=== PATIENT | female | born 1980 | race Two or more races ===

== ENCOUNTER 2025-01-12 16:43 | Inpatient (IN) | payer OTHER ==
[~2025-01-12] VITALS: Ht 165.1 cm; Wt 114.5 kg
--- NOTE | 2025-01-12 17:08 | ED.PDOC ---
GI ASSESSMENT HPI Comments This is a 44 year old female JEF presenting to the ED with chief complaint of abdominal pain. Patient reports that she has been experiencing LLQ abdominal burning with associated nausea and vomiting since 4 hours ago. Patient relays that her pain radiates to her genital region. EMS states patient was given Zofran en route to the ED. Patient denies any diarrhea, chest pain, SOB, fever, chills, dysuria, hematuria, or flank pain. Time Seen by MD: 17:05 Reviewed Notes: Nurses Notes, Puncher And Fastener Notes, Medications, Allergies Allergies: Coded Allergies: NO KNOWN ALLERGIES (Unverified , 01/12/25) Information Source: Patient, Emergency Med Personnel Mode of Arrival: EMS Timing: Hours Duration: Since onset Prehospital treatment: None Quality: Burning Vomitus: Watery Stool: Normal Severity: Moderate Recent: None Recent Hx of: None Pain Location: LLQ Modifying Factors: Nothing Associated sign and symptoms: Nausea, Vomiting, Abdominal Pain Past Medical History PAST MEDICAL HISTORY: Gallstones Surgical History: , Tubal Ligation SOLE MOLDER History: No Pertinent SOLE MOLDER History Family History Family History: Reviewed,noncontributory to illness Social History Smoker: Non-Smoker Alcohol: Occasionally Drugs: Denies Drug Use Lives In: Home Constitutional: denies: chills, diaphoresis, fatigue, fever, malaise, sweats, weakness, others EENTM: denies: blurred vision, double vision, ear bleeding, ear discharge, ear drainage, ear pain, ear ringing, eye pain, eye redness, hearing loss, mouth pain, mouth swelling, nasal discharge, nose bleeding, nose congestion, nose pain, photophobia, tearing, throat pain, throat swelling, voice changes, others Respiratory: denies: cough, hemoptysis, orthopnea, SOB at rest, shortness of breath, SOB with excertion, stridor, wheezing, others Cardiovascular: denies: chest pain, dizzy spells, diaphoresis, Dyspnea on exertion, edema, irregular heart beat, left arm pain, lightheadedness, palpitations, PND, syncope, others Gastrointestinal: reports: abdominal pain, nausea, vomiting; denies: abdomen distended, blood streaked bowels, constipated, diarrhea, dysphagia, difficulty swallowing, hematemesis, melena, poor appetite, poor fluid intake, rectal bleeding, rectal pain, others Genitourinary: denies: abnormal vagina bleeding, burning, dyspareunia, dysuria, flank pain, frequency, hematuria, incontinence, pain, , vagina dis charge, urgency, others Neurological: denies: dizziness, fainting, headache, left sided numbness, left sided weakness, numbness, paresthesia, pre-existing deficit, right sided numbness, right sided weakness, seizure, speech problems, tingling, tremors, weakness, others Musculoskeletal: denies: back pain, gout, joint pain, joint swelling, muscle pain, muscle stiffness, neck pain, others Integumetry: denies: bruises, change in color, change in hair/nails, dryness, laceration, lesions, lumps, rash, wounds, others Allergic/Immunocompromised: denies: Difficulty Healing, Frequent Infections, Hives, Itching, others Hematologic/Lymphatic: denies: anemia, blood clots, easy bleeding, easy bruising, swollen glands, others Endocrine: denies: excessive hunger, excessive sweating, excessive thirst, excessive urination, flushing, intolerance to cold, intolerance to heat, unexplained weight gain, unexplained weight loss, others Psychiatric: denies: anxiety, bipolar disorder, depression, hopeless, panic disorder, schizophrenia, sleepless, suicidal, others All Other Systems: Reviewed and Negative Physical Exam General Appearance: Moderate Distress HEENT: Normal ENT Inspection, Pharynx Normal, TMs Normal Neck: Full Range of Motion, Non-Tender, Normal, Normal Inspection Respiratory: Chest Non-Tender, Lungs Clear, No Accessory Muscle Use, No Respiratory Distress, Normal Breath Sounds Cardiovascular: No Edema, No JVD, No Murmur, No Gallop, Normal Peripheral Pulses, Regular Rate/Rhythm Breast Exam: Deferred Gastrointestinal: LLQ, LUQ, No Organomegaly, No Pulsatile Mass, Normal Bowel Sounds, Soft, Tenderness Genitalia: Deferred Pelvic: Deferred Rectal: Deferred Extremities: No calf tenderness, Normal capillary refill, Normal inspection, Normal range of motion, Non-tender, No pedal edema Musculoskeletal : Apperance: Normal Neurologic: Alert, aircraft skin burnisher II-XII nml as Tested, No Motor Deficits, Normal Affect, Normal Mood, No Sensory Deficits Cerebellar Function: Normal Reflexes: Normal Skin: Dry, Normal Color, Warm Lymphatic: No Adenopathy Was a procedure done? Was a procedure done?: No GI differential Dx Differential Diagnosis: Cholangitis, Cholecystitis, Gastritis/PUD, Andres roenteritis, Inflammatory BD, Pancreatitis, PID, UTI, Electrolyte Imbalance, Food Poisoning X-Ray, Labs, Meds, VS Vital Signs Date Time Temp Pulse Resp B/P (MAP) Pulse Ox O2 Delivery O2 Flow Rate FiO2 01/12/25 17:07 98.9 85 18 140/86 100 98.9 Lab Test 01/12/25 17:05 Range/Units White Blood Count 9.8 4.4-10.8 10^3/uL Red Blood Count 4.83 4.0-5.20 10^6/uL Hemoglobin 13.8 12.2-16.2 g/dL Hematocrit 40.7 36.0-46.0 % Mean Corpuscular Volume 84.4 80.0-100.0 fL Mean Corpuscular Hemoglobin 28.5 28.0-32.0 pg Mean Corpuscular Hemoglobin Concent 33.8 32.0-36.0 g/dL Red Cell Distribution Width 13.4 11.8-14.3 % Platelet Count 250 140-450 10^3/uL Mean Platelet Volume 8.9 6.9-10.8 fL Neutrophils (%) (Auto) 86.0 H 37.0-80.0 % Lymphocytes (%) (Auto) 9.4 L 10.0-50.0 % Monocytes (%) (Auto) 4.0 0.0-12.0 % Eosinophils (%) (Auto) 0.1 0.0-7.0 % Basophils (%) (Auto) 0.5 0.0-2.0 % Neutrophils # (Auto) 8.4 1.6-8.6 10 ^3/uL Lymphocytes # (Auto) 0.9 0.4-5.4 10 ^3/uL Monocytes # (Auto) 0.4 0-1.3 10 ^3/uL Eosinophils # (Auto) 0 0-0.8 10 ^3/uL Basophils # (Auto) 0 0-0.2 10 ^3/uL Nucleated Red Blood Cells 0.0 % Sodium Level 143 136-145 mmol/L Potassium Level 3.6 3.5-5.1 mmol/L Chloride Level 106 98-107 mmol/L Carbon Dioxide Level 27 20-31 mmol/L Anion Gap 10 5-15 Blood Urea Nitrogen 15 9-23 mg/dL Creatinine 0.75 0.550-1.02 mg/dL Glomerular Filtration Rate Calc 99 >90 mL/min BUN/Creatinine Ratio 20.0 10.0-20.0 Serum Glucose 88 74-106 mg/dL Calcium Level 9.4 8.7-10.4 mg/dL CT Abd/Pel indicates: Limited evaluation without contrast. [id number] left hydroureteronephrosis secondary to a 2 mm calculus at the left ureterovesicular junction. Cholelithiasis. Enlarged uterus with heterogeneous appearance and possible leiomyoma measuring 9 cm. Recommend pelvic ultrasound to further evaluate. Hepatosplenomegaly. Other findings as described. The patient is being admitted to the hospitalist The CBC and chemistry panel are within normal limits. The patient understands and agrees with the management. Patient does have the kidney stones. Images Reviewed?: Images reviewed and evaluated by me Time of 1ST Reevaluation: 18:46 Reevaluation 1ST: Unchanged Patient Education/Counseling: Diagnosis, Treatment, Prognosis Family Education/Counseling: No Family Present SEPSIS Sepsis Screen Physician Orders Urinalysis (01/12/25 16:51) Ct Ab Pel Wo Con-No Oral Or Iv (01/12/25 17:01) Heplock Iv (01/12/25 16:51) Vital Signs Date Time Temp Pulse Resp B/P (MAP) Pulse Ox O2 Delivery O2 Flow Rate FiO2 01/12/25 17:07 98.9 85 18 140/86 100 98.9 Laboratory Tests Test 01/12/25 17:05 White Blood Count 9.8 10^3/uL (4.4-10.8) Departure 1 Departure Time of Disposition: 18:47 Impression: Primary Impression: Intractable abdominal pain Additional Impressions: Cholelithiasis Qualified Codes: K80.20 - Calculus of gallbladder without cholecystitis without obstruction Ureterolithiasis Disposition: ADMITTED INPATIENT Admit to: Med Surg Condition: Fair Critical Care Note Critical Care Time?: No Stability Stability form required: Yes Unstable for transfer: ED Physician Assesment (Clinical assesment) Heart Score Heart Score: Heart Score Response (Comments) Value History N/A 0 EKG N/A 0 Age N/A 0 Risk Factors N/A 0 Troponin N/A 0 Total 0 I personally scribed for JADA GALEANA MD ([email or web address]) on 01/12/25 at 17:08. Electronically submitted by Geovanny Thibodeaux ([email or web address]). I personally scribed for JADA GALEAAN MD ([email or web address]) on 01/12/25 at 18:25. Electronically submitted by Geovanny Thibodeaux ([email or web address]). JADA GALEANA MD Jan 12, 2025 17:08
[2025-01-12 17:17] LABS: Hematocrit 40.7 % (36.0-46.0); Hemoglobin 13.8 g/dL (12.2-16.2); Mean Corpuscular Hemoglobin 28.5 pg (28.0-32.0); Mean Corpuscular Volume 84.4 fL (80.0-100.0); Nucleated Red Blood Cells % 0.0 %
[2025-01-12 17:23] LABS: Chloride 106 mmol/L (98-107); Potassium 3.6 mmol/L (3.5-5.1); Sodium 143 mmol/L (136-145)
[2025-01-12 17:24] LABS: Anion Gap 10 (5-15); Calcium 9.4 mg/dL (8.7-10.4); Carbon Dioxide 27 mmol/L (20-31)
[2025-01-12 17:29] LABS: BUN/Creatinine Ratio 20.0 (10.0-20.0); Blood Urea Nitrogen 15 mg/dL (9-23); Glucose 88 mg/dL (74-106)
--- NOTE | 2025-01-12 18:16 | DVH ---
Indication: pain Technique: CT axial images of the abdomen and pelvis are obtained without contrast. Coronal and sagit medina reformats were obtained. Radiation Dose Information: CTDI volume is 27.31 mGy. Dose-length product is 1411.97 mGy*cm Comparison: None FINDINGS: There is limited interpretation of the abdomen and pelvis without administration of intravenous contr ast. Lung bases demonstrate atelectasis. Adrenal glands, spleen and pancreas unremarkable in shape. Cholelithiasis. Liver unremarkable in shape. Hepatosplenomegaly. Right kidney demonstrates no hydronephrosis/nephrolithiasis. The left kidney demonstrates mild-to-mod erate left hydroureteronephrosis secondary to a 2 mm calculus at the left ureterovesicular junction. Stomach partially distended. Small bowel loops are normal in caliber. Colonic diverticular disease. Moderate volume stool in the colon. No secondary signs for appendicitis . Bladder is partially distended. Enlarged and heterogeneous appearance of the uterus. Possible uterine leiomyoma measuring 9 cm. No free pelvic fluid. No inguinal lymphadenopathy. No aggressive osseous process. Moderate lumbar degenerative disc disease most pronounced at L4-5 and L5-S1. Paraumbilical hernia containing fat 2.7 cm IMPRESSION: Limited evaluation without contrast. [id number] left hydroureteronephrosis secondary to a 2 mm calculus at the left ureterovesicular junction. Cholelithiasis. Enlarged uterus with heterogeneous appearance and possible leiomyoma measuring 9 cm. Recommend pelvi c ultrasound to further evaluate. Hepatosplenomegaly. Other findings as described.
[2025-01-12] MEDS: SODIUM CHLORIDE 0.9% 1,000 ML IVB ONE (20:39)
[2025-01-12] MEDS: ONDANSETRON HCL 4 MG/2 ML VIAL IV ONE (20:39)
[2025-01-12] MEDS: HYDROmorphone HCL 2 MG/ML VL/or syr IV ONE (20:39)
--- NOTE | 2025-01-12 22:42 | DVHHPRES ---
History of Present Illness Resident Creating Document: TONE WESLEY RESIDENT History of Present Illness Ms. Thornton is a 44-year-old female with no prior medical history, who presents today with chief complaint of left-sided flank pain. She refers sudden onset of left-sided flank pain around mid day today, described as colicky, radiating to left groin, 10/10 intensity, associated with nausea, vomiting, chills, dark urine, and tenesmus. She denies fever, dysuria, palpitations, chest pain, and shortness of breath. Due to persistence of symptoms, the patient sought medical attention in the emergency department. On evaluation in the ED, the patient was in moderate distress, afebrile, and hypertensive. Initial labs show CBC with mild neutrophilia, chemical panel within normal range, UA with hematuria, and negative UDS. Abdominal CT shows mild to moderate left hydroureteronephrosis secondary to a 2 mm calculus at the left ureterovesicular junction. She was started on IV antibiotics, IV pain medication, and fluids. She was admitted for further workup and management. Prior medical history: Denies Past surgical history: 3 C sections Allergies: Denies Social: Denies drug, alcohol, and tobacco use. States she lives with her and feels safe. Review of Systems Review of Systems Constitutional: Refers chills Denies weight loss, fever . HEENT: Denies changes in vision and hearing. Respiratory: Denies shortness of breath and cough Cardiovascular: Denies chest discomfort or palpitations GI: Refers flank pain and lower left quadrant pain, Denies abdominal distention,,diarrhea : Refers tenesmus and dark-colored urine, Denies dysuria and urinary frequency. Musculoskeletal: Denies Skin: Denies rash and pruritus. Neurological: denies dizziness headache vision or hearing problems Allergies: Coded Allergies: NO KNOWN ALLERGIES (Unverified , 01/12/25) Exam Vital Signs Vital Signs Date Time Temp Pulse Resp B/P (MAP) Pulse Ox O2 Delivery O2 Flow Rate FiO2 01/12/25 21:12 71 16 122/71 (88) 99 01/12/25 20:30 98.4 98.4 Exam General: Patient is uncomfortable due to pain, alert and oriented in person place and time. Patient following commands HEENT: Normocephalic, atraumatic, normal reactive pupils, EOM intact, pink conjunctiva, pink dry mucous membrane Respiratory/pulmonary: Bilateral chest expansion, no pain on palpation of chest wall, clear lungs bilaterally, vesicular murmurs present in almost all lung ludwig, no associated crackles or wheezes. Cardiovascular: Normal RRR, normal S1 and S2, no murmurs Abdomen: Obese, Abdomen nondistended, normal bowel sounds, soft, pain to palpation in lower left quadrant, no CVA tenderness, no palpable masses. Extremities: No deformities, there is no peripheral edema present at the lower extremities, normal pulses Skin: No rashes or pruritus, there is no sacral edema present at this time. Neurological: Intact cranial nerves with no focal neurologic deficits Labs/Xrays Labs Test 01/12/25 17:05 Range/Units White Blood Count 9.8 4.4-10.8 10^3/uL Red Blood Count 4.83 4.0-5.20 10^6/uL Hemoglobin 13.8 12.2-16.2 g/dL Hematocrit 40.7 36.0-46.0 % Mean Corpuscular Volume 84.4 80.0-100.0 fL Mean Corpuscular Hemoglobin 28.5 28.0-32.0 pg Mean Corpuscular Hemoglobin Concent 33.8 32.0-36.0 g/dL Red Cell Distribution Width 13.4 11.8-14.3 % Platelet Count 250 140-450 10^3/uL Mean Platelet Volume 8.9 6.9-10.8 fL Neutrophils (%) (Auto) 86.0 H 37.0-80.0 % Lymphocytes (%) (Auto) 9.4 L 10.0-50.0 % Monocytes (%) (Auto) 4.0 0.0-12.0 % Eosinophils (%) (Auto) 0.1 0.0-7.0 % Basophils (%) (Auto) 0.5 0.0-2.0 % Neutrophils # (Auto) 8.4 1.6-8.6 10 ^3/uL Lymphocytes # (Auto) 0.9 0.4-5.4 10 ^3/uL Monocytes # (Auto) 0.4 0-1.3 10 ^3/uL Eosinophils # (Auto) 0 0-0.8 10 ^3/uL Basophils # (Auto) 0 0-0.2 10 ^3/uL Nucleated Red Blood Cells 0.0 % Sodium Level 143 136-145 mmol/L Potassium Level 3.6 3.5-5.1 mmol/L Chloride Level 106 98-107 mmol/L Carbon Dioxide Level 27 20-31 mmol/L Anion Gap 10 5-15 Blood Urea Nitrogen 15 9-23 mg/dL Creatinine 0.75 0.550-1.02 mg/dL Glomerular Filtration Rate Calc 99 >90 mL/min BUN/Creatinine Ratio 20.0 10.0-20.0 Serum Glucose 88 74-106 mg/dL Calcium Level 9.4 8.7-10.4 mg/dL SEPSIS Sepsis Screen Date sepsis recognized/suspect: Jan 12, 2025 Time Sepsis recognized/suspect: 1644 Recent Procedure: No On Antibiotic Therapy: No Respiratory Rate >20: No Heart Rate >90: No Temp<36 C (96.8 F) or >38.3 C: No SBP <90 or MAP <65 mmHG: No New Acute Mental Status Change: No Is the patient on CPAP, BIPAP,: No Physician Orders Urinalysis (01/12/25 16:51) Ct Ab Pel Wo Con-No Oral Or Iv (01/12/25 17:01) Heplock Iv (01/12/25 16:51) Hemoglobin A1c (01/12/25 22:32) Magnesium (01/12/25 22:32) Drug Screen (01/12/25 22:32) Urine Bacterial Culture (01/12/25 22:32) Hepatic Panel (01/12/25 22:32) Abdomen Limited (01/12/25 22:32) * Urology Consult (01/12/25 22:32) Phosphorus (01/12/25 22:32) Thyroid Stimulating Hormone (01/12/25 22:32) Vitamin D, 25-Hydroxy (01/12/25 22:32) Vitamin B12 (01/12/25 22:32) Test, Urine (01/12/25 22:32) Admit (01/12/25 22:32) Allergies (01/12/25 22:32) Code Status (01/12/25 22:32) Npo (Nothing By Mouth) Diet (01/13/25 Breakfast) Condition: Stable (01/12/25 22:32) Stat Ekg For Chest Pain (01/12/25 22:32) Notify Md Of Changes From Base (01/12/25 22:32) Emergency Dysrhythmia Protocol (01/12/25 22:32) Rhythm Strips Once Every Shift (01/12/25 22:32) Sequential Compression Device (01/12/25:32) NS (01/12/25 22:45) NS (01/12/25 22:45) Tamsulosin Hydrochloride (Flomax) (01/12/25 22:45) Tamsulosin Hydrochloride (Flomax) (01/13/25 18:00) Ondansetron Hcl (Zofran) (01/12/25 22:45) Ceftriaxone Ivpb Rocephin (01/13/25 09:00) Ceftriaxone Ivpb Rocephin (01/12/25 22:45) Ketorolac Injection (Toradol Injection) (01/12/25 22:45) Ketorolac Injection (Toradol Injection) (01/12/25 22:45) Strain All Urine For Stones (01/12/25:32) Complete Blood Count (01/13/25 04:00) Basic Metabolic Panel (01/13/25 04:00) Vital Signs Date Time Temp Pulse Resp B/P (MAP) Pulse Ox O2 Delivery O2 Flow Rate FiO2 01/12/25 21:12 71 16 122/71 (88) 99 01/12/25 20:30 98.4 74 14 129/67 (87) 97 98.4 01/12/25 17:07 98.9 85 18 140/86 100 98.9 Laboratory Tests Test 01/12/25 17:05 White Blood Count 9.8 10^3/uL (4.4-10.8) Medications Medications Dose Ordered Sig/Matti Route Start Time Stop Time Status Last Admin Dose Admin Ondansetron HCl 4 mg ONCE ONCE IV 01/12/25 17:00 01/12/25 17:01 DC 01/12/25 20:39 4 MG Sodium Chloride 1,000 ml @ 1,000 mls/hr Q1H ONCE IVB 01/12/25 17:00 01/12/25 17:59 DC 01/12/25 20:39 1,000 MLS/HR Assessment/Plan Assessment/Plan Assessment and Plan: Intractable abdominal pain secondary to ureterolithiasis - Abdominal CT: [id number] left hydroureteronephrosis secondary to 2 mm calculus at the left UVJ - NS 1000 cc bolus x2 - NS maintenance fluids 75 cc/hour - Flomax 0.4 mg p.o. q.p.m. - Dilaudid 0.5 mg IV once - Toradol 15 mg IV Q 6 hours p.r.n. - Urology has been consulted - The patient is NPO pending evaluation by Urology - Orders to strain all urine Left hydroureteronephrosis secondary to ureterolithiasis - Abdominal CT: [id number] left hydroureteronephrosis secondary to 2 mm calculus at the left UVJ - Renal ultrasound: Mild left-sided hydronephrosis - As above Questionable Acute Cystitis with microscopic hematuria - Ceftriaxone 1 g IV daily - Urine culture ordered Cholelithiasis Possible leiomyoma - Abdominal CT: Enlarged uterus with heterogeneous appearance and possible leio myoma measuring 9 cm - Follow up outpatient with founder and president Obesity, BMI 33.4 kg/m2 - I have counseled the patient on healthy lifestyle modifications Diet: NPO DVT prophylaxis: SCDs GI prophylaxis: Protonix 40 mg IV daily Case discussed with Dr. Campbell Goals of care discussed with the patient for over 24 minutes. Full code. Plan discussed with: Patient, Other (Nurses) My Orders Orders - TONE WESLEY RESIDENT Procedure Category Date Status Time Hemoglobin A1c LAB 01/12/25 Transmitted 22:32 Magnesium LAB 01/12/25 Transmitted 22:32 Drug Screen LAB 01/12/25 Transmitted 22:32 Urine Bacterial EVAN 01/12/25 Transmitted Culture 22:32 Hepatic Panel LAB 01/12/25 Transmitted 22:32 Abdomen Limited US 01/12/25 Transmitted 22:32 * Urology Consult CONS 01/12/25 Transmitted 22:32 Phosphorus LAB 01/12/25 Transmitted 22:32 Thyroid Stimulating LAB 01/12/25 Transmitted Hormone 22:32 Vitamin D, 25-Hydroxy LAB 01/12/25 Transmitted 22:32 Vitamin B12 LAB 01/12/25 Transmitted 22:32 Test, Urine LAB 01/12/25 Transmitted 22:32 Admit ADMIT 01/12/25 Transmitted 22:32 Allergies LISA 01/12/25 Transmitted 22:32 Code Status CODE 01/12/25 Transmitted 22:32 Npo (Nothing By DIET 01/13/25 Transmitted Mouth) Diet Breakfast Condition: Stable LISA 01/12/25 Transmitted 22:32 Stat Ekg For Chest LISA 01/12/25 Transmitted Pain 22:32 Notify Md Of Changes [facility] 01/12/25 Transmitted From Base 22:32 Emergency Dysrhythmia [facility] 01/12/25 Transmitted Protocol 22:32 Rhythm Strips Once [facility] 01/12/25 Transmitted Every Shift 22:32 Sequential [facility] 01/12/25 Transmitted Compression Device 22:32 NS PHA 01/12/25 Transmitted 22:45 NS PHA 01/12/25 Transmitted 22:45 Tamsulosin PHA 01/12/25 Transmitted Hydrochloride (Flomax) 22:45 Tamsulosin PHA 01/13/25 Transmitted Hydrochloride (Flomax) 18:00 Ondansetron Hcl PHA 01/12/25 Transmitted (Zofran) 22:45 Ceftriaxone Ivpb PHA 01/13/25 Transmitted Rocephin 09:00 Ceftriaxone Ivpb PHA 01/12/25 Transmitted Rocephin 22:45 Ketorolac Injection PHA 01/12/25 Transmitted (Toradol Injection) 22:45 Ketorolac Injection PHA 01/12/25 Transmitted (Toradol Injection) 22:45 Strain All Urine For [facility] [place] 01/12/25 Transmitted Stones 22:32 Complete Blood Count LAB 01/13/25 Verified 04:00 Basic Metabolic Panel LAB 01/13/25 Verified 04:00 Date of Service: Jan 12, 2025 Billing Provider: GEORGETTE CAMPBELL MD Common Visit Codes: 85613-EYCRKAT INP/OBS CARE (HIGH) Secondary Visit Codes: 60903-[id number] CARE PLAN 30 MINUTES TONE WESLEY RESIDENT Jan 12, 2025 22:42 BRISA JUNE RESIDENT Jan 13, 2025 05:31
[2025-01-12 23:02] LABS: Alanine Aminotransferase 11.0 U/L (7-40); Albumin 4.5 g/dL (3.2-4.8); Alkaline Phosphatase 69.0 U/L (46-116); Bilirubin, Direct 0.1 mg/dL (<0.3); Bilirubin, Total 0.4 mg/dL (0.2-1.0); Magnesium 2.1 mg/dL (1.6-2.6); Total Protein 7.8 g/dL (5.7-8.2)
--- NOTE | 2025-01-12 23:30 | DVH ---
INDICATION: L hydronephrosis TECHNIQUE: Multiple real-time sonographic images of the kidneys and bladder were obtained. COMPARISON: None FINDINGS: RIGHT kidney measures 11.2 cm in length. No stones or hydronephrosis. LEFT kidney measures 12.4 cm in length. No stones. Mild left-sided hydronephrosis. No large intraluminal masses are seen in the bladder. Probable uterine fibroid measuring 8.5 cm, incompletely imaged. IMPRESSION: Mild left-sided hydronephrosis. Ureter not well imaged. CT recommended to assess for cause.
[2025-01-12 23:33] LABS: Urine Protein, UAD Negative (Negative)
[2025-01-12 23:34] LABS: Amphetamine Screen, Urine Neg (NEGATIVE); Barbiturate Scree,Urine Neg (NEGATIVE); Benzodiazephine Screen, Urine Neg (NEGATIVE); Cannabinoid Screen, Urine Neg (NEGATIVE); Cocaine Screen, Urine Neg (NEGATIVE); Opiate Scree,Urine Neg (NEGATIVE); Phencyclidine Screen, Urine Neg (NEGATIVE)
[2025-01-12 23:54] VITALS: BP 135/90; PULSE 66; RESP 18; TEMP 98.5; O2SAT 100
[2025-01-13] MEDS: KETOROLAC TROMETH 30 MG/ML 1ML VIAL IV ONE (00:15)
[2025-01-13] MEDS: SODIUM CHLORIDE 0.9% 1,000 ML IV ONE (00:17)
[2025-01-13] MEDS: TAMSULOSIN HYDROCHLORIDE 0.4 MG CAP PO ONE (00:18)
[2025-01-13] MEDS: PANTOPRAZOLE 40 MG/10 ML VIAL INJ IV ONE (00:18)
[2025-01-13] MEDS ORDERED: SEMA1.7I (00:33)
[2025-01-13] MEDS: SODIUM CHLORIDE 0.9% 1,000 ML IV SCH (01:22)
[2025-01-13 05:00] VITALS: BP 120/59; PULSE 72; RESP 18; TEMP 97.9; O2SAT 98
[2025-01-13 05:39] LABS: Hematocrit 35.0 % (36.0-46.0); Hemoglobin 11.4 g/dL (12.2-16.2); Mean Corpuscular Hemoglobin 29.0 pg (28.0-32.0); Mean Corpuscular Volume 88.7 fL (80.0-100.0); Nucleated Red Blood Cells % 0.3 %
[2025-01-13 05:40] LABS: Potassium 3.8 mmol/L (3.5-5.1); Sodium 142 mmol/L (136-145)
[2025-01-13 05:41] LABS: Anion Gap 11 (5-15); Calcium 7.8 mg/dL (8.7-10.4); Carbon Dioxide 21 mmol/L (20-31); Chloride 110 mmol/L (98-107)
[2025-01-13 05:46] LABS: BUN/Creatinine Ratio 11.3 (10.0-20.0); Glucose 83 mg/dL (74-106)
[2025-01-13 05:59] LABS: Blood Urea Nitrogen 7 mg/dL (9-23)
[2025-01-13 08:00] VITALS: PULSE 79; RESP 18; O2SAT 96
[2025-01-13 08:35] VITALS: BP 105/50; PULSE 79; RESP 18; TEMP 98.7; O2SAT 96
[2025-01-13] MEDS: PANTOPRAZOLE 40 MG/10 ML VIAL INJ IV SCH (08:43)
[2025-01-13] MEDS: KETOROLAC TROMETH 30 MG/ML 1ML VIAL IV PRN (08:43)
--- NOTE | 2025-01-13 09:04 | DVHINCON2 ---
Date of service: Jan 13, 2025 Referring Physician Hospitalist Reason for Consultation uvj stone History of Present Illness History Source: RN Notes, MD Notes Exam Limitations: No limitations HPI 44-year-old female with no prior medical history, who presents today with chief complaint of left-sided flank pain. She refers sudden onset of left-sided flank pain around mid day today, described as colicky, radiating to left groin, 10/10 intensity, associated with nausea, vomiting, chills, dark urine, and tenesmus. She denies fever, dysuria, palpitations, chest pain, and shortness of breath. Due to persistence of symptoms, the patient sought medical attention in the emergency department. On evaluation in the ED, the patient was in moderate distress, afebrile, and hypertensive. Initial labs show CBC with mild neutrophilia, chemical panel within normal range, UA with hematuria, and negative UDS. Abdominal CT shows mild to moderate left hydroureteronephrosis secondary to a 2 mm calculus at the left ureterovesicular junction. She was started on IV antibiotics, IV pain medication, and fluids. She was admitted for further workup and management. Prior medical history: Denies Past surgical history: 3 C sections Allergies: Denies Social: Denies drug, alcohol, and tobacco use. States she lives with her and feels safe. Home Meds Reported Medications Semaglutide (Wegovy) 1.7 Mg/0.75 Ml Inj 01/13/25 Past Medical History Patient Family History: Cardiovascular disease G8 FATHER H&P Exam Vital Signs Vital Signs Date Time Temp Pulse Resp B/P (MAP) Pulse Ox O2 Delivery O2 Flow Rate FiO2 01/13/25 08:35 98.7 79 18 105/50 (68) 96 98.7 01/13/25 00:28 Room Air* 0 21 Labs/Xrays [address] [address] Ph: [phone] DIAGNOSTIC IMAGING Diagnostic Imaging Report : [id number] Signed PATIENT: JACKIE DUQUET: [id number] UNIT: [id number] : 1980 [facility] AGE / SEX: 44 / F ADM STATUS: ADM IN SERVICE 31 ORDERING PHYSICIAN: TONE WESLEY RESIDENT PROCEDURE(s): KIDUS - KIDNEY REASON: L hydronephrosis ORDER NUMBER(s): [id number], ACCESSION NUMBER(s): [id number] INDICATION: L hydronephrosis TECHNIQUE: Multiple real-time sonographic images of the kidneys and bladder were obtained. COMPARISON: None FINDINGS: RIGHT kidney measures 11.2 cm in length. No stones or hydronephrosis. LEFT kidney measures 12.4 cm in length. No stones. Mild left-sided hydronephrosis. No large intraluminal masses are seen in the bladder. Probable uterine fibroid measuring 8.5 cm, incompletely imaged. IMPRESSION: Mild left-sided hydronephrosis. Ureter not well imaged. CT recommended to assess for cause. ATED BY: ISIDRO VELASQUEZ MD DICTATED DATE/TIME: 01/12/252327 SIGNED BY: ISIDRO VELASQUEZ MD SIGNED DATE/TIME: 01/12/252327 CC: [place] [id number] Ph: [phone] DIAGNOSTIC IMAGING Diagnostic Imaging Report : [id number] Signed PATIENT: JACKIE DUQUET: [id number] UNIT: [id number] : 1980 LOC: ER ROOM / BED: / AGE / SEX: 44 / F ADM STATUS: REG ER SERVICE 1701 ORDERING PHYSICIAN: JADA GALEANA MD PROCEDURE(s): ABPL - CT AB PEL WO CON-NO ORAL OR IV REASON: pain ORDER NUMBER(s): [id number], ACCESSION NUMBER(s): [id number] Indication: pain Technique: CT axial images of the abdomen and pelvis are obtained without contrast. Coronal and sagittal reformats were obtained. Radiation Dose Information: CTDI volume is 27.31 mGy. Dose-length product is 1411.97 mGy*cm Comparison: None FINDINGS: There is limited interpretation of the abdomen and pelvis without administration of intravenous contrast. Lung bases demonstrate atelectasis. Adrenal glands, spleen and pancreas unremarkable in shape. Cholelithiasis. Liver unremarkable in shape. Hepatosplenomegaly. Right kidney demonstrates no hydronephrosis/nephrolithiasis. The left kidney demonstrates [id number] left hydroureteronephrosis secondary to a 2 mm calculus at the left ureterovesicular junction. Stomach partially distended. Small bowel loops are normal in caliber. Colonic diverticular disease. Moderate volume stool in the colon. No secondary signs for appendicitis. Bladder is partially distended. Enlarged and heterogeneous appearance of the uterus. Possible uterine leiomyoma measuring 9 cm. No free pelvic fluid. No inguinal lymphadenopathy. No aggressive osseous process. Moderate lumbar degenerative disc disease most pronounced at L4-5 and L5-S1. Paraumbilical hernia containing fat 2.7 cm IMPRESSION: Limited evaluation without contrast. Ldir-ge-[id number] left hydroureteronephrosis secondary to a 2 mm calculus at the left ureterovesicular junction. Cholelithiasis. Enlarged uterus with heterogeneous appearance and possible leiomyoma measuring 9 cm. Recommend pelvic ultrasound to further evaluate. Hepatosplenomegaly. Other findings as described. ATED BY: SCOTT HOOK MD DICTATED DATE/TIME: 01/12/251817 SIGNED BY: SCOTT HOOK MD SIGNED DATE/TIME: 01/12/251817 CC: Labs Test 01/13/25 05:10 01/12/25 21:45 01/12/25 17:05 Range/Units White Blood Count 6.7 # 4.4-10.8 10^3/uL Red Blood Count 3.95 L 4.0-5.20 10^6/uL Hemoglobin 11.4 #L 12.2-16.2 g/dL Hematocrit 35.0 #L 36.0-46.0 % Mean Corpuscular Volume 88.7 # 80.0-100.0 fL Mean Corpuscular Hemoglobin 29.0 28.0-32.0 pg Mean Corpuscular Hemoglobin Concent 32.7 32.0-36.0 g/dL Red Cell Distribution Width 13.4 11.8-14.3 % Platelet Count 194 140-450 10^3/uL Mean Platelet Volume 9.0 6.9-10.8 fL Neutrophils (%) (Auto) 67.8 37.0-80.0 % Lymphocytes (%) (Auto) 23.7 10.0-50.0 % Monocytes (%) (Auto) 6.1 0.0-12.0 % Eosinophils (%) (Auto) 1.2 0.0-7.0 % Basophils (%) (Auto) 1.2 0.0-2.0 % Neutrophils # (Auto) 4.5 1.6-8.6 10 ^3/uL Lymphocytes # (Auto) 1.6 0.4-5.4 10 ^3/uL Monocytes # (Auto) 0.4 0-1.3 10 ^3/uL Eosinophils # (Auto) 0.1 0-0.8 10 ^3/uL Basophils # (Auto) 0.1 0-0.2 10 ^3/uL Nucleated Red Blood Cells 0.3 % Sodium Level 142 136-145 mmol/L Potassium Level 3.8 3.5-5.1 mmol/L Chloride Level 110 H 98-107 mmol/L Carbon Dioxide Level 21 20-31 mmol/L Anion Gap 11 5-15 Blood Urea Nitrogen 7 L 9-23 mg/dL Creatinine 0.62 0.550-1.02 mg/dL Glomerular Filtration Rate Calc 111 >90 mL/min BUN/Creatinine Ratio 11.3 10.0-20.0 Serum Glucose 83 74-106 mg/dL Calcium Level 7.8 L 8.7-10.4 mg/dL Urine Color Light-yellow Yellow Urine Clarity Clear Clear Urine pH 6.0 5.0-9.0 Urine Specific [place] 1.022 1.001-1.035 Urine Protein Negative Negative Urine Ketones 2+ H Negative Urine Blood 1+ H Negative /uL Urine Nitrite Negative Negative Urine Bilirubin Negative Negative Urine Urobilinogen Normal Negative mg/dL Urine Leukocyte Esterase Negative Negative /uL Urine RBC 15 0 - 4 /hpf Urine Microscopic WBC 1 0-5 /HPF Urine Squamous Epithelial Cells Few <5 /hpf Urine Bacteria None seen None Seen /hpf Urine Mucus Few None Seen Urine Glucose Normal Normal mg/dL Urine Test Negative Negative Urine Opiates Screen Neg NEGATIVE Urine Fentanyl Screen Neg NEGATIVE Urine Barbiturates Screen Neg NEGATIVE Urine Phencyclidine Screen Neg NEGATIVE Urine Amphetamines Screen Neg NEGATIVE Urine Benzodiazepines Screen Neg NEGATIVE Urine Cocaine Screen Neg NEGATIVE Urine Cannabinoids Screen Neg NEGATIVE Hemoglobin A1c 5.1 <5.7 % A1C Phosphorus Level 2.5 2.4-5.1 mg/dL Magnesium Level 2.1 1.6-2.6 mg/dL Total Bilirubin 0.4 0.2-1.0 mg/dL Direct Bilirubin 0.1 <0.3 mg/dL Aspartate Amino Transferase (AST) 18 13-40 U/L Alanine Aminotransferase (ALT) 11 7-40 U/L Alkaline Phosphatase 69 46-116 U/L Total Protein 7.8 5.7-8.2 g/dL Albumin 4.5 3.2-4.8 g/dL Vitamin B12 Level 650 211-911 pg/mL Vitamin D 25-Hydroxy 32.9 30.0-100 ng/mL Thyroid Stimulating Hormone (TSH) 1.84 0.55-4.78 uIU/mL Assessment/Plan Problem List: (1) Ureterolithiasis Plan pain meds prn expulsive measures strain urine increase fluids outpt f/u 2 weeks urology signing off Plan discussed with: Patient, Other TRACIE PARSON NP Jan 13, 2025 09:04
[2025-01-13] MEDS: MANNITOL FTV 25% 12.5 GM/50 ML 50 ML IV ONE (11:47)
--- NOTE | 2025-01-13 12:00 | DVHDSRES ---
Discharge Summary Date of Admission Resident Creating Document: ALAN ARCE RESIDENT Jan 12, 2025 at 22:32 Date of Discharge: Jan 13, 2025 Admitting Diagnosis left-sided flank pain secondary to ureterolithiasis Labs/Diagnostic Data: Laboratory Results Test 01/13/25 05:10 01/12/25 21:45 01/12/25 17:05 White Blood Count 6.7 10^3/uL (4.4-10.8) Red Blood Count 3.95 10^6/uL (4.0-5.20) Hemoglobin 11.4 g/dL (12.2-16.2) Hematocrit 35.0 % (36.0-46.0) Mean Corpuscular Volume 88.7 fL (80.0-100.0) Mean Corpuscular Hemoglobin 29.0 pg (28.0-32.0) Mean Corpuscular Hemoglobin Concent 32.7 g/dL (32.0-36.0) Red Cell Distribution Width 13.4 % (11.8-14.3) Platelet Count 194 10^3/uL (140-450) Mean Platelet Volume 9.0 fL (6.9-10.8) Neutrophils (%) (Auto) 67.8 % (37.0-80.0) Lymphocytes (%) (Auto) 23.7 % (10.0-50.0) Monocytes (%) (Auto) 6.1 % (0.0-12.0) Eosinophils (%) (Auto) 1.2 % (0.0-7.0) Basophils (%) (Auto) 1.2 % (0.0-2.0) Neutrophils # (Auto) 4.5 10 ^3/uL (1.6-8.6) Lymphocytes # (Auto) 1.6 10 ^3/uL (0.4-5.4) Monocytes # (Auto) 0.4 10 ^3/uL (0-1.3) Eosinophils # (Auto) 0.1 10 ^3/uL (0-0.8) Basophils # (Auto) 0.1 10 ^3/uL (0-0.2) Nucleated Red Blood Cells 0.3 % Sodium Level 142 mmol/L (136-145) Potassium Level 3.8 mmol/L (3.5-5.1) Chloride Level 110 mmol/L (98-107) Carbon Dioxide Level 21 mmol/L (20-31) Anion Gap 11 (5-15) Blood Urea Nitrogen 7 mg/dL (9-23) Creatinine 0.62 mg/dL (0.550-1.02) Glomerular Filtration Rate Calc 111 mL/min (>90) BUN/Creatinine Ratio 11.3 (10.0-20.0) Serum Glucose 83 mg/dL (74-106) Calcium Level 7.8 mg/dL (8.7-10.4) Urine Color Light-yellow (Yellow) Urine Clarity Clear (Clear) Urine pH 6.0 (5.0-9.0) Urine Specific [place] 1.022 (1.001-1.035) Urine Protein Negative (Negative) Urine Ketones 2+ (Negative) Urine Blood 1+ /uL (Negative) Urine Nitrite Negative (Negative) Urine Bilirubin Negative (Negative) Urine Urobilinogen Normal mg/dL (Negative) Urine Leukocyte Esterase Negative /uL (Negative) Urine RBC 15 /hpf (0 - 4) Urine Microscopic WBC 1 /HPF (0-5) Urine Squamous Epithelial Cells Few /hpf (<5) Urine Bacteria None seen /hpf (None Seen) Urine Mucus Few (None Seen) Urine Glucose Normal mg/dL (Normal) Urine Test Negative (Negative) Urine Opiates Screen Neg (NEGATIVE) Urine Fentanyl Screen Neg (NEGATIVE) Urine Barbiturates Screen Neg (NEGATIVE) Urine Phencyclidine Screen Neg (NEGATIVE) Urine Amphetamines Screen Neg (NEGATIVE) Urine Benzodiazepines Screen Neg (NEGATIVE) Urine Cocaine Screen Neg (NEGATIVE) Urine Cannabinoids Screen Neg (NEGATIVE) Hemoglobin A1c 5.1 % A1C (<5.7) Phosphorus Level 2.5 mg/dL (2.4-5.1) Magnesium Level 2.1 mg/dL (1.6-2.6) Total Bilirubin 0.4 mg/dL (0.2-1.0) Direct Bilirubin 0.1 mg/dL (<0.3) Aspartate Amino Transferase (AST) 18 U/L (13-40) Alanine Aminotransferase (ALT) 11 U/L (7-40) Alkaline Phosphatase 69 U/L (46-116) Total Protein 7.8 g/dL (5.7-8.2) Albumin 4.5 g/dL (3.2-4.8) Vitamin B12 Level 650 pg/mL (211-911) Vitamin D 25-Hydroxy 32.9 ng/mL (30.0-100) Thyroid Stimulating Hormone (TSH) 1.84 uIU/mL (0.55-4.78) Other Laboratory Tests 01/13/25 05:10 Brief Hx & Hospital Course: Ms. Thornton is a 44-year-old female with no significant prior medical history who presented to the emergency department with sudden onset of severe left-sided flank pain around midday. She described the pain as colicky, radiating to the left groin, rated 10/10 in intensity, and associated with nausea, vomiting, chills, dark urine, and tenesmus. She denied fever, dysuria, chest pain, palpitations, and shortness of breath. On arrival, she was in moderate distress, afebrile, and hypertensive. Laboratory evaluation revealed mild neutrophilia on CBC, normal chemistry panel, hematuria on urinalysis, and a negative urine drug screen. CT abdomen and pelvis without contrast showed [id number] left hydroureteronephrosis secondary to a 2 mm calculus at the left ureterovesicular junction, along with cholelithiasis, hepatosplenomegaly, and an enlarged heterogeneous uterus with a possible 9 cm leiomyoma. Renal ultrasound confirmed mild left-sided hydronephrosis, and the ureter was not well visualized. The patient was started on IV fluids, IV pain control including Dilaudid and Toradol, and IV antibiotics with ceftriaxone for possible acute cystitis. She was admitted for further evaluation and management, including urology consultation. She was kept NPO pending urology evaluation and instructed to strain all urine. Additional findings included obesity with a BMI of 33.4, colonic diverticular disease, and moderate lumbar degenerative disc disease. She was counseled on healthy lifestyle modifications and advised to follow up with gynecology for evaluation of the possible uterine leiomyoma. DVT prophylaxis with sequential compression devices and GI prophylaxis with IV Protonix were initiated. Expulsive therapy was initiated with Tamsulosin HCl 0.4 mg PO daily with dinner for 10 days, and Mannitol was added to assist with stone passage. Exam General: Patient is uncomfortable due to pain, alert and oriented in person place and time. Patient following commands HEENT: Normocephalic, atraumatic, normal reactive pupils, EOM intact, pink conjunctiva, pink dry mucous membrane Respiratory/pulmonary: Bilateral chest expansion, no pain on palpation of chest wall, clear lungs bilaterally, vesicular murmurs present in almost all lung ludwig, no associated crackles or wheezes. Cardiovascular: Normal RRR, normal S1 and S2, no murmurs Abdomen: Obese, Abdomen nondistended, normal bowel sounds, soft, pain to palpation in lower left quadrant, no CVA tenderness, no palpable masses. Extremities: No deformities, there is no peripheral edema present at the lower extremities, normal pulses Skin: No rashes or pruritus, there is no sacral edema present at this time. Neurological: Intact cranial nerves with no focal neurologic deficits Operations or Procedures PATIENT: JOSE DUQUE ACCT: [id number] UNIT: [id number] : 1980 LOC: OVERFLOW ROOM / BED: [address] [place] [address] / A AGE / SEX: 44 / F ADM STATUS: ADM IN SERVICE 31 ORDERING PHYSICIAN: TONE WESLEY RESIDENT PROCEDURE(s): KIDUS - KIDNEY REASON: L hydronephrosis ORDER NUMBER(s): [id number], ACCESSION NUMBER(s): [id number] INDICATION: L hydronephrosis TECHNIQUE: Multiple real-time sonographic images of the kidneys and bladder were obtained. COMPARISON: None FINDINGS: RIGHT kidney measures 11.2 cm in length. No stones or hydronephrosis. LEFT kidney measures 12.4 cm in length. No stones. Mild left-sided hydronephrosis. No large intraluminal masses are seen in the bladder. Probable uterine fibroid measuring 8.5 cm, incompletely imaged. IMPRESSION: Mild left-sided hydronephrosis. Ureter not well imaged. CT recommended to assess for cause. - PATIENT: JOSE DUQUE ACCT: [id number] UNIT: [id number] : 1980 LOC: ER ROOM / BED: / AGE / SEX: 44 / F ADM STATUS: REG ER SERVICE 1701 ORDERING PHYSICIAN: JADA GALEANA MD PROCEDURE(s): ABPL - CT AB PEL WO CON-NO ORAL OR IV REASON: pain ORDER NUMBER(s): [id number], ACCESSION NUMBER(s): [id number] Indication: pain Technique: CT axial images of the abdomen and pelvis are obtained without contrast. Coronal and sagittal reformats were obtained. Radiation Dose Information: CTDI volume is 27.31 mGy. Dose-length product is 1411.97 mGy*cm Comparison: None FINDINGS: There is limited interpretation of the abdomen and pelvis without administration of intravenous contrast. Lung bases demonstrate atelectasis. Adrenal glands, spleen and pancreas unremarkable in shape. Cholelithiasis. Liver unremarkable in shape. Hepatosplenomegaly. Right kidney demonstrates no hydronephrosis/nephrolithiasis. The left kidney demonstrates [id number] left hydroureteronephrosis secondary to a 2 mm calculus at the left ureterovesicular junction. Stomach partially distended. Small bowel loops are normal in caliber. Colonic diverticular disease. Moderate volume stool in the colon. No secondary signs for appendicitis. Bladder is partially distended. Enlarged and heterogeneous appearance of the uterus. Possible uterine leiomyoma measuring 9 cm. No free pelvic fluid. No inguinal lymphadenopathy. No aggressive osseous process. Moderate lumbar degenerative disc disease most pronounced at L4-5 and L5-S1. Paraumbilical hernia containing fat 2.7 cm IMPRESSION: Limited evaluation without contrast. Mxnf-zf-dziiphks left hydroureteronephrosis secondary to a 2 mm calculus at the left ureterovesicular junction. Cholelithiasis. Enlarged uterus with heterogeneous appearance and possible leiomyoma measuring 9 cm. Recommend pelvic ultrasound to further evaluate. Hepatosplenomegaly. Other findings as described. Condition at Discharge: Stable Final Diagnosis/Problems List Intractable abdominal pain secondary to ureterolithiasis Left hydroureteronephrosis secondary to ureterolithiasis Questionable Acute Cystitis with microscopic hematuria Cholelithiasis Possible leiomyoma Obesity, BMI 33.4 kg/m2 Discharge Disposition: Home Discharge Instruct/Medications Diet: Regular Activity: No Restrictions, As Tolerated Follow Up/Referral: Follow up with PCP within 1 week Medications: Tamsulosin Hcl 0.4 Mg PO DAILY @DINNER 10 Days #10 CAP Ref 0 continue home medications Scheduled Tamsulosin Hcl (Tamsulosin Hcl), 0.4 MG PO DAILY@[email or web address] Scheduled PRN Hydrocodone-Acetaminophen (Hydrocodone Bitartrate/AC 5-325 mg), 1 TAB PO Q6HPRN PRN Miscellaneous Medications Semaglutide (Wegovy), (Reported) Discharge Statement: "Patient was advised to return to the ER or call 911 if any headaches, dizziness, shortness of breath, chest pain, abdominal pain, bleeding, fevers, or worsening of medical condition. Patient was counseled about treatment plan, medications, possible side effects, patientverbalized understanding. All questions were answered to the best of my ability. This discharge took greater then 30 minutes in planning, reviewing documentation, counseling the patient, and discussing with other team members." ASSESSMENT ASSESSMENT Assessment Intractable abdominal pain secondary to ureterolithiasis Left hydroureteronephrosis secondary to ureterolithiasis Questionable Acute Cystitis with microscopic hematuria Cholelithiasis Possible leiomyoma Obesity, BMI 33.4 kg/m2 Date of Service: Jan 13, 2025 Billing Provider: KAYE RAMOS MD Common Visit Codes: 44290-LDS/OBS DISCH DAY >30min ALAN ARCE RESIDENT Jan 13, 2025 12:00 KAYE RAMOS MD Jan 16, 2025 00:55
[2025-01-13 13:00] VITALS: BP 111/66; PULSE 63; RESP 20; TEMP 98.5; O2SAT 98
[2025-01-13] MEDS ORDERED: TAMS0.4C39 PO (13:10)
[2025-01-13] MEDS ORDERED: KETOROLAC TROMETH 30 MG/ML 1ML VIAL IV ONE (13:45)
[2025-01-13] MEDS ORDERED: HYDROmorphone HCL 2 MG/ML VL/or syr IM ONE (14:15)
[2025-01-13] MEDS ORDERED: ONDANSETRON HCL 4 MG/2 ML VIAL IM ONE (14:15)
[2025-01-13] MEDS: ONDANSETRON HCL 4 MG/2 ML VIAL IV PRN (14:25)
[2025-01-13] MEDS ORDERED: HYDROmorphone HCL 2 MG/ML VL/or syr IV ONE (14:45)
[2025-01-13] MEDS: HYDROmorphone HCL 2 MG/ML VL/or syr IV ONE (15:00)
[2025-01-13 17:00] VITALS: BP 138/79; PULSE 90; RESP 20; TEMP 99.5; O2SAT 95
[2025-01-13] MEDS: TAMSULOSIN HYDROCHLORIDE 0.4 MG CAP PO SCH (17:34)
[2025-01-13] MEDS ORDERED: HYDR-4902 PO (18:24)
[2025-01-13 20:00] VITALS: PULSE 72; RESP 18; O2SAT 96
== END 2025-01-13 20:52 | disposition home or self-care (01) | DRG 463 ==
LOC: ER 16:43 → EDBD 16:43 → OVERFLOW 22:32 → EAST 22:41
PROVIDERS: ADMIT Internal Medicine; ATTEND Internal Medicine
DX: N13.6 Pyonephrosis (principal); R16.2 Hepatomegaly with splenomegaly, not elsewhere classified; K80.20 Calculus of gallbladder without cholecystitis without obstruction; E66.9 Obesity, unspecified; Z68.33 Body mass index [BMI] 33.0-33.9, adult; Z98.51 Tubal ligation status; D21.9 Benign neoplasm of connective and other soft tissue, unspecified
CPT/HCPCS: 36415; 74176; 76775; 80048; 80076; 80307; 81001; 81025; 82306; 82607; 83036; 83735; 84100; 84443; 85025; 87086; 96361; 96374; G0378; J1885; J2405; J2470